=== PATIENT | female | born 1985 | race Caucasian/White ===

== ENCOUNTER 2020-11-20 13:12 | Emergency (ER) | payer SELFPAY ==
[2020-11-20 13:15] VITALS: BP 133/85; PULSE 74; RESP 16; TEMP 36.9; O2SAT 99
--- NOTE | 2020-11-20 13:42 | ED.GENADULT ---
HPI - General Adult General Chief complaint: Abdominal Pain Stated complaint: left side pain tender to touch Source: patient Mode of arrival: ambulatory Limitations: no limitations History of Present Illness HPI narrative: Erinn is a previously healthy 35F that presented to the ED with LUQ abdominal pain. She woke up at 0600 got out of bed and had cramping pain in her LUQ. She had a few episodes of nausea and non-bloody non-bilious vomiting this morning. She has no diarrhea, constipation, hematochezia, melena or hematemesis. No trauma to the abdomen. She had a tubal ligation but no other abdominal surgeries. Related Data Home Medications Medication Instructions Recorded Confirmed No Home Medications 11/20/20 11/20/20 Allergies Allergy/AdvReac Type Severity Reaction Status Date / Time adhesive Allergy Unknown CLEAR TAPE Unverified 06/10/16 13:16 - RASH, IRRITATION TO SITE, ITCHEY Review of Systems Constitutional: Constitutional: Reports no additional constitutional complaints, Denies chills and Denies fever(s) Eyes: Eyes: Reports no additional eye complaints ENT: Reports system reviewed and no additional complaints, except as documented Cardiovascular: Cardiovascular: Reports no additional cardiovascular complaints Respiratory: Respiratory: Reports no additional respiratory complaints Gastrointestinal: Gastrointestinal: Reports as per HPI Genitourinary: Genitourinary: Reports no additional female genitourinary complaints Musculoskeletal: Musculoskeletal: Reports no additional musculoskeletal complaints Integumentary/Breasts: Skin/Breast: Reports system reviewed and no additional complaints, except as docu Neurologic: Reports system reviewed and no additional complaints, except as documented Psychiatric: Psychiatric: Reports no additional psychiatric complaints Endocrine: Endocrine: Reports no additional endocrine complaints Hematologic/Lymphatic: Hematologic/Lymphatic: Reports no additional hematologic/lymphatic complaints Allergic/Immunologic: Allergic/Immunologic: Reports no additional allergic/immunologic complaints Exam Const: General: no acute distress and alert; No confusion Orientation/consciousness: patient oriented x3 Limitations: No altered mental status HENMT: Head: normal to inspection Other: atraumatic Eyes: Conjunctivae: conjunctivae normal Pupils: Equal, round and reactive pupils present Neck: Neck: normal visual inspection Chest: Chest palpation & inspection: normal inspection of the chest Resp: Effort & Inspection: normal respiratory effort Auscultation: clear to auscultation bilaterally Cardio: Rate: regular rate Rhythm: regular rhythm GI: Inspection: non-distended GI Palp: Yes Soft to palpation, No Guarding due to palpation present (GI) and No Rigid due to palpation Other: mild RUQ tenderness. Negative Romero sign, negative obturator sign, negative psoas sign, no guarding or rebound tenderness : General: Yes no CVA tenderness Skin: General skin exam: normal color Rashes: no rashes Neuro: General: patient oriented x3 and moves all extremities Extrem: General: normal to inspection Psych: Appearance: grossly normal Mental Status: mental status grossly normal Thought content: Yes Normal thought content present Course Course Emergency Course: Given morphine for pain. Labs were largely unremarkable. Her pain was much improved after the medicine. No nausea reported and no vomiting in the ED. Vital Signs Vital signs: Vital Signs Temperature 98.4 F 11/20/20 13:15 Pulse Rate 74 11/20/20 13:15 Respiratory Rate 16 11/20/20 13:15 Blood Pressure 133/85 11/20/20 13:15 Pulse Oximetry 99 11/20/20 13:15 Temperature 98.4 F 11/20/20 13:15 Pulse Rate 74 11/20/20 14:58 Respiratory Rate 14 11/20/20 14:58 Blood Pressure 138/91 H 11/20/20 14:58 Pulse Oximetry 99 11/20/20 14:58 Medical Decision Making
[2020-11-20 14:08] LABS: Basophils Absolute Auto 0.05 K/mm3 (0.00-0.10); Basophils Percent Auto 0.6 % (0.0-1.0); Eosinophils Absolute Auto 0.17 K/mm3 (0.02-0.50); Eosinophils Percent Auto 2.1 % (1.0-6.0); Hematocrit 41.6 % (35.0-49.0); Hemoglobin 13.9 g/dL (12.0-15.0); Immature Granulocyte Absolute 0.02 K/mm3 (0.00-0.00); Immature Granulocyte Percent A 0.3 % (0.0-0.0); Lymphocytes Absolute Auto 2.11 K/mm3 (1.10-4.50); Lymphocytes Percent Auto 26.6 % (18.0-42.0); Mean Corpuscular HGB Conc 33.4 g/dL (32.0-36.0); Mean Corpuscular Hemoglobin 30.9 pg (27.0-31.0); Mean Corpuscular Volume 92.4 fL (78.0-102.0); Mean Platelet Volume 10.9 fl (9.2-11.8); Monocytes Absolute Auto 0.28 K/mm3 (0.10-0.90); Monocytes Percent Auto 3.5 % (2.0-11.0); Neutrophils Absolute Auto 5.3 K/mm3 (1.7-7.2); Neutrophils Percent Auto 66.9 % (50.0-70.0); Platelet Count Result 264 K/mm3 (150-420); Red Cell Distribution Width 12.1 % (11.6-14.4); White Blood Count 7.9 K/mm3 (4.8-10.8)
[2020-11-20 14:09] LABS: Appearance Urine Cloudy (Clear); Bilirubin Urine Negative (Negative); Glucose Urine UA Negative (Negative); Ketones Urine Negative (Negative); Leukocyte Esterase Ur Negative (Negative); Nitrate Urine Negative (Negative); Protein Urine Negative (Negative); Specific Grav Ur 1.025 (1.010-1.020); Urobilinogen Urine 0.2 mg/dL (0.2-1.0)
[2020-11-20 14:12] LABS: Add Urine Microscopic? YES; Amorphous Sediment Urine Moderate; Bacteria Urine Trace /hpf; Blood Urine Trace-lysed (Negative); Color Urine Light Yellow (Yellow); RBC Urine None seen /hpf (0-2); Squamous Epithelial Cell Urine Rare /hpf (Few); WBC Urine None seen /hpf (0-3)
[2020-11-20 14:13] LABS: Pregnancy On Board Control Positive; Urine Pregnancy Test Negative
[2020-11-20 14:19] LABS: Prothrombin Time 10.8 Seconds (9.50-12.10)
[2020-11-20 14:24] LABS: Lactic Acid Reflex 1.1 mmol/L (0.4-2.0)
[2020-11-20 14:31] LABS: Alanine Aminotransferase 25 U/L (14-59); Albumin Level 4.1 g/dL (3.4-5.0); Alkaline Phosphatase 59 U/L (46-116); Anion Gap 8 mmol/L (8-16); Aspartate Amino Transferase 11 U/L (15-37); Bilirubin,Total 0.2 mg/dL (0.00-1.00); Blood Urea Nitrogen 9 mg/dL (7-18); Carbon Dioxide 30 mmol/L (21-32); Chloride 103 mmol/L (98-108); Estimated CRCL calculation 79 ml/min; Estimated Glomerular Filt Rate > 60; Glucose 97 mg/dL (70-99); Lipase 49 U/L (73-393); Osmolality Calculated 290 mOsm/kg (285-295); Potassium 3.8 mmol/L (3.5-5.1); Sodium 141 mmol/L (136-145); Total Protein 7.3 g/dL (6.4-8.2)
[2020-11-20 14:33] LABS: CRP 0.4 mg/dL (0.0-0.9)
[2020-11-20 14:58] VITALS: BP 138/91; PULSE 74; RESP 14; O2SAT 99
== END 2020-11-20 15:00 | disposition home or self-care (01) ==
PROVIDERS: Emergency Provider Family Medicine
DX: R10.12 Left upper quadrant pain (principal)
CPT/HCPCS: 36415; 80053; 81001; 81025; 83605; 83690; 85025; 85610; 86140; 99282; 99283